=== PATIENT | female | born 1990 | race Caucasian/White ===

== ENCOUNTER 2018-07-14 20:32 | Emergency (ER) | payer OTHER ==
[~2018-07-14] VITALS: Ht 157.5 cm; Wt 53.5 kg
[2018-07-15] MEDS ORDERED: PEPCID40 MG PO (03:19)
[2018-07-15] MEDS ORDERED: ZOFRAN ODT8 MG PO (03:19)
[2018-07-15] MEDS ORDERED: GILTUSS COUGH-118 ML PO (03:19)
== END 2018-07-15 03:14 | disposition home or self-care (01) ==
LOC: ER 20:32
DX: K29.70 Gastritis, unspecified, without bleeding (principal)